=== PATIENT | male | born 1960 | race Caucasian/White ===

== ENCOUNTER 2018-11-11 21:34 | Emergency (ER) | payer MEDICAID ==
[~2018-11-11] VITALS: Ht 177.8 cm; Wt 72.7 kg
[~2018-11-11 21:34] MED LIST: NO HOME MEDS
[2018-11-11] MEDS ORDERED: TETanus/Pertussis (Acell)/Diphther VAC/PF (Tdap-Adult) 0.5ml syringe IM ONE (22:00)
--- NOTE | 2018-11-11 22:10 | NUR ---
PT WAS CITED. TICKET GIVEN BY OFFICER GUNNAR ALCANTARA. CASE # [id number].
--- NOTE | 2018-11-11 22:28 | NUR ---
TO CT SCAN VIA WHEELCHAIR
--- NOTE | 2018-11-11 23:25 | NUR ---
CALLED GM PTS BROTHER AND [facility] PT DAUGHTER PER PTS REQUEST. LEFT MESSAGE AT BOTH PHONES. CORIN [phone], GM [phone]
--- NOTE | 2018-11-11 23:31 | NUR ---
CORIN RETURNED CALL AND WILL BE COMING IN.
[2018-11-11] MEDS ORDERED: HYDROcodone/acetaminophen 10/325mg tab PO ONE (23:35)
[2018-11-11 23:41] LABS: ALANINE AMINOTRANSFERASE 74 U/L (12-78); ALBUMIN/GLOBULIN RATIO 1.1 (1.1-1.5); ALKALINE PHOSPHATASE 72 IU/L (46-116); ANION GAP 8 (8-16); ASPARTATE AMINO TRANSFERASE 98 U/L (10-37); BILIRUBIN,TOTAL 1.2 MG/DL (0.1-1.0); BLOOD UREA NITROGEN 7 MG/DL (7-18); BUN/CREATININE RATIO 8.8 (5.4-32.0); CALCIUM 8.3 MG/DL (8.5-10.1); CHLORIDE 103 MMOL/L (99-107); ETHANOL 0.261 GM/DL (0.0-0.010); GLUCOSE 133 MG/DL (70-104); MAGNESIUM 2.2 MG/DL (1.5-2.4); POTASSIUM 3.9 MMOL/L (3.5-5.1); SODIUM 141 MMOL/L (135-145); TOTAL CARBON DIOXIDE 30.2 MMOL/L (24-32); TOTAL PROTEIN 7.7 G/DL (6.4-8.2); eGFR > 90 ML/MIN
[2018-11-11 23:43] LABS: PARTIAL THROMBOPLASTIN TIME 26 SECONDS (22-32); PROTHROMBIN TIME 10.5 SECONDS (9.0-12.0)
[2018-11-12] MEDS ORDERED: LIDOcaine 1.5% w/epinephrine 1:200,000 5ml ampul IJ ONE (00:15)
[2018-11-12 00:17] LABS: BASOPHILS % (AUTO) 0.4 % (0-1); EOSINOPHILS # (AUTO) 0.2 X10'3 (0-0.9); HEMATOCRIT 45.6 % (42.0-52.0); HEMOGLOBIN 15.9 g/dl (14.0-17.9); LYMPHOCYTES % (AUTO) 9.8 % (21-51); MEAN CORPUSCULAR HEMOGLOBIN 32.2 PG (27.0-31.0); MEAN CORPUSCULAR HGB CONC 34.8 % (33.0-36.5); MEAN CORPUSCULAR VOLUME 92.7 FL (78-98); MEAN PLATELET VOLUME 7.9 FL (7.4-10.4); MONOCYTES # (AUTO) 0.6 X10'3 (0-0.9); MONOCYTES % (AUTO) 5.5 % (2-12); NEUTROPHILS # (AUTO) 8.4 X10'3 (1.8-7.7); NEUTROPHILS % (AUTO) 82.3 % (42-75); PLATELET COUNT 162 X10'3 (140-440); RED BLOOD COUNT 4.93 X10'6 (4.70-6.10); RED CELL DISTRIBUTION WIDTH 13.4 % (11.5-14.5); WHITE BLOOD COUNT 10.2 X10'3 (4.5-11.0)
--- NOTE | 2018-11-12 00:20 | NUR ---
PT MOVED TO BED 8 IN ED. ORDERED FOR PT TO BE TRANSFERED TO [facility]. IV STARTED, LAC TRAY PREPARED FOR SUTURING, AND PAPERWORK ORDERED. IV STARTED IN LAC. GENERAL ASSESSMENT MADE ON PT.
[2018-11-12] MEDS ORDERED: LIDOcaine 1% w/EPI 1:100,000 30ml vial (MDV) IJ ONE (00:25)
[2018-11-12] MEDS ORDERED: morphine 4 MG/ML inj SYRINge IV ONE (00:40)
--- NOTE | 2018-11-12 01:08 | NUR ---
REPORT CALLED TO [facility]RE
[2018-11-12 01:11] VITALS: BP 146/85
== END 2018-11-12 01:13 | disposition short-term general hospital (02) ==
LOC: ER 21:35
DX: S06.300A Unspecified focal traumatic brain injury without loss of consciousness, initial encounter (principal); S02.40DA Maxillary fracture, left side, initial encounter for closed fracture; S02.2XXA Fracture of nasal bones, initial encounter for closed fracture; S01.111A Laceration without foreign body of right eyelid and periocular area, initial encounter; S20.211A Contusion of right front wall of thorax, initial encounter; F10.129 Alcohol abuse with intoxication, unspecified; F17.200 Nicotine dependence, unspecified, uncomplicated; Y04.0XXA Assault by unarmed brawl or fight, initial encounter; Y93.89 Activity, other specified; Y92.89 Other specified places as the place of occurrence of the external cause; Y99.9 Unspecified external cause status; Y90.9 Presence of alcohol in blood, level not specified
CPT/HCPCS: 12013; 36415; 70450; 70486; 72125; 80053; 80320; 83735; 85025; 85610; 85730; 90471; 90715; 96374; 99291; J2270; J3490

== ENCOUNTER 2023-07-11 08:26 | Day surgery (SDC) | payer MEDICAID ==
[2023-07-07 15:23] LABS: ALBUMIN 3.7 G/DL (3.4-5.0); ALBUMIN/GLOBULIN RATIO 0.9 (1.1-1.5); ALKALINE PHOSPHATASE 138 IU/L (46-116); BASOPHILS % (AUTO) 0.7 % (0-1); BLOOD UREA NITROGEN 9 MG/DL (7-18); CALCIUM 8.7 MG/DL (8.5-10.1); CHLORIDE 100 MMOL/L (99-107); CREATININE 1.51 MG/DL (0.60-1.10); EOSINOPHILS # (AUTO) 0.1 X10'3 (0-0.9); EOSINOPHILS % (AUTO) 2.4 % (0-6); LYMPHOCYTES # (AUTO) 1.1 X10'3 (1.1-4.8); LYMPHOCYTES % (AUTO) 18.3 % (21-51); MEAN CORPUSCULAR HEMOGLOBIN 32.2 PG (27.0-31.0); MEAN CORPUSCULAR HGB CONC 33.7 g/dL (33.0-36.5); MEAN CORPUSCULAR VOLUME 95.3 FL (78-98); MEAN PLATELET VOLUME 7.4 FL (7.4-10.4); MONOCYTES # (AUTO) 0.5 X10'3 (0-0.9); NEUTROPHILS # (AUTO) 4.1 X10'3 (1.8-7.7); NEUTROPHILS % (AUTO) 69.6 % (42-75); PRE OP ALT 65 U/L (30-65); PRE OP ANION GAP 8 (8-16); PRE OP AST 83 U/L (10-37); PRE OP BILIRUB, TOTAL 0.7 MG/DL (0.0-1.0); PRE OP GLUCOSE 99 MG/DL (70-104); PRE OP HEMATOCRIT 37.6 % (42.0-52.0); PRE OP HEMOGLOBIN 12.7 g/dL (14.0-17.9); PRE OP PLATELET COUNT 180 X10'3 (140-440); PRE OP POTASSIUM 4.8 MMOL/L (3.4-5.1); PRE OP SODIUM 132 MMOL/L (135-145); RED BLOOD COUNT 3.95 X10'6 (4.70-6.10); TOTAL CARBON DIOXIDE 23.9 MMOL/L (24-32); TOTAL PROTEIN 7.6 G/DL (6.4-8.2); eGFR 47 ML/MIN
[~2023-07-11] VITALS: Ht 177.8 cm; Wt 72.6 kg
[2023-07-11] VITALS (11 sets, daily range): BP systolic 83–107; BP diastolic 47–68; PULSE 58–74; RESP 9–16; TEMP 97.7; O2SAT 94–97
[~2023-07-11 08:26] MED LIST changes: +AMLO-708 PO; +BUPIVAcaine/PF 2.5mg/ml (0.25%) 10ml vial ONE; +DOCUMENT DATE & TIME OF BETA-BLOCKER PO ONE; +LOSA100T58 PO; +METO-384 PO; -NO HOME MEDS; +ROSU5TAB12 PO; +acetaminophen 1,000mg/100ml IV 100 ML IV PRN; +cefazolin 2gm/D5W 100mL 100 ML IV ONE; +famotidine 20mg tablet PO ONE; +hydrALAZINE 20mg/ml inj. IV PRN; +labetalol 20mg/4ml (5mg/ml) syringe IV PRN; +meperidine/PF 25mg/ml syringe IV PRN; +morphine 2 MG/ML inj. syringe IV PRN; +morphine 4 MG/ML inj SYRINge IV PRN; +ondansetron/PF 4mg/2ml inj IV PRN; +proCHLORperazine 10 MG/2 ml inj IV PRN; +ringers solution, lacted 1,000 ML IV SCH
[2023-07-11] MEDS ORDERED: midazolam 1 mg/ML 2ml injection ONE (10:30)
[2023-07-11] MEDS ORDERED: fentaNYL/PF 50MCG/1 ML 2ML syringe ONE (10:30)
[2023-07-11] MEDS ORDERED: propofol inj 20 ML IV ONE ×2 (10:39→10:55)
[2023-07-11] MEDS ORDERED: BUPIVAcaine/PF 2.5 mg/ml (0.25%) 30ml vial ONE (10:49)
--- NOTE | 2023-07-11 11:37 | NUR ---
Received from OR via [facility], accompanied by Anesthesiologist DR DA SILVA and report given by Anesthesiologist. PT IS GROGGY BUT ANSWERS QUESTIONS APPROPRIATELY AND FOLLOWS COMMANDS. PT PLACED ON BEDSIDE MONITOR. VSS. PT IS IN SR WITH RATE IN 60'S. PT IS ON RA AND TOLERATING WELL WITH O2 SAT >95%. PT HAS 20G PIV TO RT ARM WITH LR INFUSING ORDERED. PT HAS SPLINT/ROMAN WRAP TO LEFT ARM FROM HAND TO ABOVE ELBOW THAT IS CDI. PT IS ABLE TO WIGGLE FINGERS. PT DENIES PAIN AT THIS TIME. WILL CONTINUE TO ASSESS
--- NOTE | 2023-07-11 13:15 | NUR ---
DC HOME: ALL DISCHARGE CRITERIA HAS BEEN MET. VSS, PAIN AT TOLERABLE LEVEL. ABLE TO SAFELY AMBULATE AND TRANSFER SELF. IV TAKEN OUT WITHOUT ANY COMPLICATIONS. ALL DISCHARGE INSTRUCTIONS COVERED WITH PATIENT AND ALL QUESTIONS ANSWERED. PATIENT TAKEN OUT VIA WHEELCHAIR TO PERSONAL VEHICLE WHERE COUSIN LISA DROVE PATIENT HOME.
== END 2023-07-11 13:14 | disposition home or self-care (01) ==
LOC: PRE-OP 08:26
PROVIDERS: ATTEND Orthopaedic Surgery Hand Surgery
DX: S63.592A Other specified sprain of left wrist, initial encounter (principal); M70.22 Olecranon bursitis, left elbow; E78.00 Pure hypercholesterolemia, unspecified; I10 Essential (primary) hypertension; Z79.899 Other long term (current) drug therapy; Z72.89 Other problems related to lifestyle; X58.XXXA Exposure to other specified factors, initial encounter; Y93.89 Activity, other specified; Y92.89 Other specified places as the place of occurrence of the external cause; Y99.8 Other external cause status
CPT/HCPCS: 24105; 29846; 36415; 80053; 82948; 85025; 93005; J0690; J2250; J2704; J3010; J3490; J7030; J7120; Z7506; Z7508; Z7512; A4215; A4565; A4615; A4618; A6449; A7000

== ENCOUNTER 2023-10-10 09:21 | Day surgery (SDC) | payer MEDICAID ==
[2023-10-03 11:10] LABS: BASOPHILS % (AUTO) 0.6 % (0-1); EOSINOPHILS # (AUTO) 0.1 X10'3 (0-0.9); LYMPHOCYTES # (AUTO) 1.3 X10'3 (1.1-4.8); MEAN CORPUSCULAR HEMOGLOBIN 32.6 PG (27.0-31.0); MEAN CORPUSCULAR HGB CONC 34.2 g/dL (33.0-36.5); MEAN CORPUSCULAR VOLUME 95.1 FL (78-98); MEAN PLATELET VOLUME 7.3 FL (7.4-10.4); MONOCYTES # (AUTO) 0.7 X10'3 (0-0.9); MONOCYTES % (AUTO) 9.2 % (2-12); NEUTROPHILS # (AUTO) 5.4 X10'3 (1.8-7.7); NEUTROPHILS % (AUTO) 72.2 % (42-75); PRE OP HEMATOCRIT 36.7 % (42.0-52.0); PRE OP HEMOGLOBIN 12.6 g/dL (14.0-17.9); PRE OP PLATELET COUNT 157 X10'3 (140-440); PRE OP WHITE BLOOD COUNT 7.4 10'3 (4.8-10.8); RED BLOOD COUNT 3.86 X10'6 (4.70-6.10)
[2023-10-03 12:02] LABS: ALBUMIN 3.6 G/DL (3.4-5.0); ALBUMIN/GLOBULIN RATIO 0.9 (1.1-1.5); ALKALINE PHOSPHATASE 107 IU/L (46-116); BLOOD UREA NITROGEN 16 MG/DL (7-18); BUN/CREATININE RATIO 11.3 (10.0-20.0); CALCIUM 8.9 MG/DL (8.5-10.1); CHLORIDE 101 MMOL/L (99-107); CREATININE 1.41 MG/DL (0.60-1.10); PRE OP ALT 56 U/L (30-65); PRE OP ANION GAP 12 (8-16); PRE OP AST 63 U/L (10-37); PRE OP BILIRUB, TOTAL 1.2 MG/DL (0.0-1.0); PRE OP GLUCOSE 98 MG/DL (70-104); PRE OP POTASSIUM 4.1 MMOL/L (3.4-5.1); PRE OP SODIUM 135 MMOL/L (135-145); TOTAL CARBON DIOXIDE 22.3 MMOL/L (24-32); TOTAL PROTEIN 7.6 G/DL (6.4-8.2); eGFR 51 ML/MIN
[2023-10-10] VITALS (17 sets, daily range): BP systolic 73–102; BP diastolic 48–65; PULSE 67–75; RESP 10–14; TEMP 97.6; O2SAT 96–100
[~2023-10-10] VITALS: Ht 177.8 cm; Wt 74.6 kg
[~2023-10-10 09:21] MED LIST changes: -BUPIVAcaine/PF 2.5mg/ml (0.25%) 10ml vial ONE; +CHOL500049 PO; -acetaminophen 1,000mg/100ml IV 100 ML IV PRN; -hydrALAZINE 20mg/ml inj. IV PRN; -labetalol 20mg/4ml (5mg/ml) syringe IV PRN; -meperidine/PF 25mg/ml syringe IV PRN; -morphine 2 MG/ML inj. syringe IV PRN; -morphine 4 MG/ML inj SYRINge IV PRN; -ondansetron/PF 4mg/2ml inj IV PRN; -proCHLORperazine 10 MG/2 ml inj IV PRN
[2023-10-10] MEDS ORDERED: LIDOcaine 1%/PF 5ML 10 MG/ML VIAL ONE (11:24)
[2023-10-10] MEDS ORDERED: BUPIVAcaine/PF 5 mg/ml 10ml ONE (11:24)
[2023-10-10] MEDS ORDERED: fentaNYL/PF 50MCG/1 ML 2ML syringe ONE (11:34)
[2023-10-10] MEDS ORDERED: LIDOcaine 0.5% (5mg/ml) 50ml vial ONE (11:35)
[2023-10-10] MEDS ORDERED: midazolam 1 mg/ML 2ml injection ONE ×2 (11:35→11:53)
[2023-10-10] MEDS ORDERED: diphenhydrAMINE 50 mg/ml inj ONE (11:53)
[2023-10-10] MEDS ORDERED: BUPIVAcaine 0.25% w/Epi /PF 30ml vial IJ ONE (11:55)
[2023-10-10] MEDS ORDERED: LIDOcaine 1% 30ml preserv. free vial IJ ONE (11:55)
[2023-10-10] MEDS ORDERED: propofol inj 20 ML IV ONE (12:10)
== END 2023-10-10 14:42 | disposition home or self-care (01) ==
LOC: PAS 09:21
PROVIDERS: ATTEND Orthopaedic Surgery Hand Surgery
DX: M1A.0411 Idiopathic chronic gout, right hand, with tophus (tophi) (principal); I10 Essential (primary) hypertension; Z72.89 Other problems related to lifestyle; Z79.899 Other long term (current) drug therapy; Z98.890 Other specified postprocedural states
CPT/HCPCS: 26113; 36415; 80053; 82948; 85025; A6222; J0690; J1200; J2250; J2704; J3010; J3490; J7030; J7120; S0020; Z7506; Z7512; A4215; A4618; A7000